=== PATIENT | male | born 1945 | race Caucasian/White ===

== ENCOUNTER 2016-07-20 10:36 | Day surgery (SDC) | payer BC ==
[~2016-07-20 10:36] MED LIST: CPAP; IBUPROFEN800 M1 PO; OMEPRAZOLE20 M3 PO; SIMETHICONE80 M3 PO; SYMBICORT 160-1 PUFF INH; TYLENOL EXTRA500 M1 PO; XOPENEX HFA15 G1 INH
[2016-07-20 11:16] LABS: PROTHROMBIN TIME 11.2 SECONDS (9.0-13.6)
[2016-07-20 11:22] LABS: ANION GAP 13 mmol/L (0-20); BLOOD UREA NITROGEN 19 mg/dl (6-24); CALCIUM 9.2 mg/dl (8.5-10.5); CARBON DIOXIDE-VENOUS 26 mmol/L (22-32); CHLORIDE 105 mmol/l (96-110); GLUCOSE 101 mg/dL (70-110); POTASSIUM 4.9 mmol/L (3.7-5.1); SODIUM 139 mmol/L (135-145); eGFR VALUE FOR BLACK 71 mL/Min
== END 2016-07-20 16:24 ==
LOC: SRG 10:36 → SHSC 10:37 → ORE 12:01 → PACU 13:57 → SHSC 15:05
PROVIDERS: Orthopaedic Surgery Sports Medicine
PROC: 0SRD0L9 Replacement of Left Knee Joint with Medial Unicondylar Synthetic Substitute, Cemented, Open Approach (ICD-10-PCS; principal; 2016-07-20)
DX: M17.12 Unilateral primary osteoarthritis, left knee (principal); J44.9 Chronic obstructive pulmonary disease, unspecified; E66.01 Morbid (severe) obesity due to excess calories; Z68.31 Body mass index [BMI] 31.0-31.9, adult; Z91.041 Radiographic dye allergy status; Z98.890 Other specified postprocedural states
CPT/HCPCS: C1713; J0171; J0690; J1885; J2270; J2795